=== PATIENT | female | born 1970 | race Caucasian/White ===

== ENCOUNTER 2017-04-26 14:13 | Outpatient (CLI) ==
[2016-08-25 02:18] VITALS: BMI 31.3
--- NOTE | 2017-04-26 15:44 | US ---
EXAM: Right upper quadrant abdominal ultrasound. History: Elevated liver enzymes. Technique: Multiple sonographic images through the abdomen were obtained. Color duplex Doppler was used to interrogate vascular flow. Findings: The liver is mildly enlarged measuring 16.1 cm. The liver is diffusely echogenic. No fo olman liver lesions identified sonographically. There is antegrade flow within the main portal vein. The liver echotexture is coarsened. Limited visualization of the right kidney demonstrates no evid ence for hydronephrosis. Status post cholecystectomy. The pancreas is not well visualized due to o bscuration by bowel gas. Common bile duct measures 0.4 cm in caliber. Impression: Enlarged fatty liver with coarsened echotexture. Status post cholecystectomy
== END 2017-04-26 14:14 | disposition home or self-care (01) ==
LOC: RAD 14:13
PROVIDERS: ATTEND Family Medicine
DX: R74.8 Abnormal levels of other serum enzymes (principal)

== ENCOUNTER 2018-12-06 08:23 | Emergency (ER) ==
[2018-12-06 08:29] VITALS: BP 123/77; TEMP 99.5; BMI 33.7
--- NOTE | 2018-12-06 09:08 | ED.PDOC ---
General ED Provider: Dr. JERRY GAO Chief Complaint: Nausea/Vomiting Stated Complaint: upst stomach and loose BM of decreasing frequency.No N&V since she ate potatoe salad on sunday. Time Seen by Physician: 09:08 Mode of Arrival: Walk-In Information Source: Patient Exam Limitations: No limitations Primary Care Provider: LEIDY SERVIN Nursing and Triage Documentation Reviewed and Agree: Yes Does patient meet sepsis criteria?: No System Inflammatory Response Syndrome: Not Applicable Sepsis Protocol: For patient's 13 years and over: Temp is 96.8 and below OR 101 and greater Pulse >90 BPM Resp >20/minute Acutely Altered Mental Status Are patient's symptoms suggestive of a new infection, such as: -Pneumonia -Skin, Soft Tissue -Endocarditis -UTI -Bone, Joint Infection -Implantable Device -Acute Abdominal Infection -Wound Infection -Meningitis -Blood Stream Catheter Infection -Unknown GI Complaint Exam - Abdominal Pain Complaint/Exam Onset: Sudden Duration: 1 1/2 day Symptoms Are: Resolved Initial Severity: Moderate Current Severity: Mild Location of Pain: Diffuse Character: Reports: Cramping Aggravating: Reports: Eating Alleviating: Reports: Rest, Spontaneous resolution Associated Signs and Symptoms: Reports: Diarrhea AAA Risk Factors: Reports: None Cardiac Risk Factors: Reports: None Surgical Obstruction Risk Factors: Reports: None Related Surgical History: Reports: None Abdominal Findings: Present: None Differential Diagnoses: Diverticulitis, Gastroenteritis, Irritable Bowel Syndrome Review of Systems - Review Of Systems Constitutional: Reports: No symptoms, Sweats Eyes: Reports: No symptoms Ears, Nose, Mouth, Throat: Reports: No symptoms Respiratory: Reports: No symptoms Cardiac: Reports: No symptoms GI: Reports: No symptoms : Reports: No symptoms Musculoskeletal: Reports: No symptoms Skin: Reports: No symptoms Neurological: Reports: No symptoms Endocrine: Reports: No symptoms Hematologic/Lymphatic: Reports: No symptoms All Other Systems: Reviewed and Negative Past Medical History - Past Medical History Previously Healthy: Yes Endocrine: Reports: None Cardiovascular: Reports: Hypertension, Other (old record-palpitations) Respiratory: Reports: None Hematological: Reports: None Gastrointestinal: Reports: None Genitourinary: Reports: None Neuro/Psych: Reports: None, Migraine (old record-migraine nausea) Musculoskeletal: Reports: Arthritis, Back Pain (old record-), Other (old record- knee pain) Cancer: Reports: None Last Menstrual Period: 1 1/2 years ago Other Pertinent Past Medical History: old record- blurred vision - Surgical History General Surgical History: Reports: Tubal ligation, Cholecystectomy - Family History Family History: Reports: Heart (father decesed in 70s alcohol related), Other ( mother with dementia) - Social History Smoking Status: Never smoker Hx Substance Use: No Alcohol Screening: Occasionally Physical Exam - Physical Exam Appearance: Well-appearing Ill-appearing: None Pain Distress: None Eyes: BC ENT: Ears normal Neck: Supple Respiratory: Breath sounds diminished GI/: Soft Musculoskeletal: Normal strength Skin: Warm Neurological: Sensation intact Critical Care Note - Critical Care Note Total Time (mins): 0 Course - Course Orders, Labs, Meds: Orders Category Date Time Status IV [ED IV/MEDIPORT/POWERPORT] .ONCE EMERGENCY 12/06/18 09:08 Active 0.9 % Sodium Chloride [Saline Flush] MEDS 12/06/18 09:08 Active 1 syr IVF PRN PRN Sodium Chloride 0.9% [Sodium Chloride] 1,000 ml MEDS 12/06/18 09:09 Discontinued IV BOLUS Medications Generic Name Dose Route Start Last Admin Trade Name Freq PRN Reason Stop Dose Admin Sodium Chloride 1 syr 12/06/18 09:08 12/06/18 09:16 Saline Flush IVF 1 syr PRN PRN Administration To flush IV Discontinued Medications Generic Name Dose Route Start Last Admin Trade Name Freq PRN Reason Stop Dose Admin Sodium Chloride 1,000 mls @ 1,000 mls/hr 12/06/18 09:09 12/06/18 09:16 Sodium Chloride IV 12/06/18 10:08 1,000 mls/hr BOLUS STA Administration Vital Signs: Temp Pulse Resp BP Pulse Ox 12/06/18 08:25 99.5 F 110 H 20 123/77 96 Departure - Departure Time of Disposition: 10:21 Disposition: HOME SELF-CARE Discharge Problem: Diarrhea Instructions: Gastroenteritis (ED), Acute Nausea and Vomiting (ED) Condition: Good Pt referred to PMD for follow-up: No IPMP verified?: No Additional Instructions: ciproflixacin 250mg one tablet two times a day for 7 days. liquids for 12-24 hours and then advance as tolerated. follow up with your doctor if continue to have problems Allergies/Adverse Reactions: Allergies ketorolac tromethamine [From Toradol] Allergy (Severe, Verified 12/06/18 08:30) mouth and tongue swelling Sulfa (Sulfonamide Antibiotics) Allergy (Severe, Verified 12/06/18 08:30) Hives and rash levofloxacin [From Levaquin] Adverse Reaction (Verified 12/06/18 08:30) monosodium glutamate Adverse Reaction (Verified 12/06/18 08:30) Home Medications: Ambulatory Orders Losartan Potassium [Cozaar] 100 mg PO DAILY 03/19/15 Citalopram Hydrobromide [Celexa] 20 mg PO DAILY 11/10/15 Esomeprazole Magnesium [Nexium] 20 mg PO DAILY PRN 11/10/15 Atorvastatin Calcium 10 mg PO DAILY 12/06/18 Disposition Discussed With: Patient
[2018-12-06] MEDS ORDERED: SODIUM CHLORIDE 1,000 ML IV STA (09:09)
== END 2018-12-06 10:32 | disposition home or self-care (01) ==
LOC: ED 08:23
DX: R19.7 Diarrhea, unspecified (principal); R11.2 Nausea with vomiting, unspecified; R10.84 Generalized abdominal pain; I10 Essential (primary) hypertension
CPT/HCPCS: 96360; 96361; 99283